=== PATIENT | female | born 1995 | race Caucasian/White ===

== ENCOUNTER 2016-08-19 10:40 | Emergency (ER) | payer BC ==
[2016-08-19 10:50] VITALS: BP 109/67
--- NOTE | 2016-08-19 10:58 | ERNOTE ---
[facility] Date of Service: 08/19/16 Presenting Symptoms: other - right ear pain and sore throat Time Seen by Provider: 08/19/16 10:49 Source: patient Exam Limitations: no limitations - Immun/Allergies/Home Medications Allergies/Adverse Reactions: Allergies Allergy/AdvReac Type Severity Reaction Status Date / Time No Known Allergies Allergy Verified 08/09/14 11:00 Home Medications: HOME MEDICATIONS Birthcontrol DAILY 06/23/12 [Last Taken 08/19/16] Ibuprofen [Motrin] 800 mg PO QID #30 tab 08/09/14 [Last Taken Unknown] - History of Present Illness Narrative: Patient is a 20 year old female who presents to the ED by herself complaining of sore throat x 2 days, chills since last night and right ear pain since this morning. Patient denies fever, NVD. States she is not a smoker yet lives at home with her mother who is a smoker. Denies being in contact with anyone who is currently ill. Date (Duration): 08/17/16 Severity: Present: mild ENT Location: Present: ear (R), throat Prearrival Treatment: Present: no prearrival treatment Modifying Factors - Improves: Reports: nothing Modifying Factors - Worsens: Reports: nothing Associated Symptoms - ENT: Reports: sore throat, nasal congestion/drainage. Denies: fever, malaise, poor fluid intake, poor solid intake, cough, voice change, drooling, facial pain/swelling, tooth pain, jaw swelling, change in hearing, ear drainage, headache, foreign body, trauma Review of Systems - Review of Systems Constitutional: Present: chills. Absent: recent illness, fever, diaphoresis, weakness, fatigue, malaise, weight loss EYE: Absent: eye pain, eye discharge, blurred vision, double vision, vision changes ENT: Present: ear pain - right ear pain since this am, nasal drainage, sore throat. Absent: ear discharge Respiratory: Absent: no symptoms reported, shortness of breath, cough, orthopnea , wheezing, stridor Cardiology: Absent: chest pain, palpitations Gastrointestinal/Abdominal: Absent: nausea, vomiting, diarrhea, abdominal pain Genitourinary: Present: no symptoms reported Musculoskeletal: Present: no symptoms reported Skin: Present: no symptoms reported. Absent: rash, dryness, lesions Neurological: Present: no symptoms reported Endocrine: Present: no symptoms reported Hematologic/Lymphatic: Present: no symptoms reported Psych: Present: no symptoms reported Physical Exam - Physical Exam General Appearance: Present: wd/wn, alert, no apparent distress Eye Exam: Normal inspection: bilateral, PERRL: bilateral Ears, Nose, Throat: Present: normal ENT inspection, pharyngeal erythema. Absent : nasal congestion, sinus pain/drainage, tonsillar exudate, tonsillar swelling, dry mucous membranes Neck: Present: normal inspection, nontender, full range of motion. Absent: lymphadenopathy (R), lymphadenopathy (L) Respiratory: Present: no respiratory distress, normal breath sounds, no accessory muscle use, chest nontender, lungs clear. Absent: crackles, rales, rhonchi, stridor, wheezing Cardiovascular/Chest: Present: regular rate, rhythm, no murmur, normal peripheral pulses Gastrointestinal/Abdominal: Present: normal bowel sounds, nontender, nondistended, soft, no organomegaly Rectal Exam: Present: deferred Back Exam: Present: normal inspection Extremity Exam: Present: normal inspection, non-tender, normal range of motion, no edema Neurological Exam: Present: alert, oriented, normal mood/affect, no motor/ sensory deficits Skin Exam: Present: normal color, warm/dry. Absent: diaphoresis, cyanosis Lymphatic Exam: Present: no adenopathy ED Progress - Results and Orders Patient's Lab Results:: I have reviewed the patient's lab results. - Vital Signs Patient's Vital Signs:: I have reviewed the patient's vital signs. Vital Signs: Vital Signs 08/19/16 10:40 Temperature 36.7 C Pulse Rate 116 H Respiratory 18 Rate Blood Pressure 109/67 O2 Sat by Pulse 99 Oximetry - Progress/Reassessment Chief Complaint: Sore Throat Departure Clinical Impression: Acute viral pharyngitis, Upper respiratory infection, viral - Departure Disposition: Home self-care Condition: Good Instructions: Upper Respiratory Infection, Adult, [id number], Pharyngitis, [id number], Form - Excuse from Work, School, or Physical Activity Additional Instructions: Use an over the counter decongestant for next 3-5 days as directed on the box. Tylenol for pain every 6 hours. Throat lozenges, like [place], for sore throat. Referrals: Ondina Arriola MD [Primary Care Provider] -
--- OUTSIDE RECORDS SUMMARY | 2016-08-19 11:21 | XMS REPORT | Continuity of Care Document ---
:1995 Author Organization [facility] ([facility]) Address [address] [place] [address] Phone [phone] Care Team Providers Name Role Ondina Yin Primary Care Provider [phone] Source Comments This disclosure is being made pursuant to the Care Everywhere program, applicable federal and state laws, and may not contain all informaitonavailable regarding this patient.[facility] ([facility]) Active Allergies and Adverse Reactions No Known Allergies Current Medications Prescription Sig. Disp. 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 Social History Tobacco Use Types Packs/Day Years Used Date Never Smoker Smokeless Tobacco: Never Used Tobacco Cessation:Counseling Given: Yes Comments: Alcohol Use Drinks/Week oz/Week Comments No Last Filed Vital Signs Vital Sign Reading Time Taken Blood Pressure 104/56 11/27/2014 8:06 AM CDT Pulse 64 11/27/2014 8:06 AM CDT Temperature 36.9 C (98.4 F) 11/27/2014 8:06 AM CDT Respiratory Rate 16 10/23/2007 10:58 AM CDT Height 1.54 m (5' 0.63") 11/27/2014 8:06 AM CDT Weight 47.764 kg (105 lb 4.8 oz) 11/27/2014 8:06 AM CDT Body Mass Index 20.14 11/27/2014 8:06 AM CDT Oxygen Saturation - - Plan of Care Health Maintenance Due Date Last Done Comments Hepatitis B Vaccine (1 of 3 - Primary Series) 1994 HPV Vaccine (1 of 3 - Female/Unknown 3 Dose Series) 2005 Tdap Vaccine 2005 Meningococcal Vaccine (1 of 1) 2010 Cervical Cancer Screening 2012 Lipid Disorder Screening 2012 MMR Vaccine 2012 Td Vaccine 2012 Varicella Vaccine (1 of 2 - Adult - No Evidence of 2012 Immunity) Influenza Vaccine: Seasonal (#1) 01/03/2016 Results from Last 3 Months Not on file
[2016-08-19] MEDS ORDERED: ACETAMINOPHEN 325 MG TABLET PO ONE (11:24)
[2016-08-19] MEDS ORDERED: ACETAMINOPHEN 325 MG TABLET ONE (11:34)
== END 2016-08-19 11:41 | disposition home or self-care (01) ==
LOC: ER 10:40
DX: J20.8 Acute bronchitis due to other specified organisms (principal); J06.9 Acute upper respiratory infection, unspecified; B97.89 Other viral agents as the cause of diseases classified elsewhere